=== PATIENT | female | born 2000 | race Caucasian/White ===

== ENCOUNTER 2022-09-06 08:29 | Observation (INO) ==
--- NOTE | 2022-09-06 09:17 | Emergency Department Note ---
History of Present Illness General Chief complaint: Throat Pain Stated complaint: TONSILS TOUCHING, NOT EATEN/DRANK LAST 12 HOURS Time Seen by Provider: 09/06/22 09:09 History of Present Illness Maximum Pain Intensity: 10 This is a 22-year-old female that presents to the emergency department via private vehicle with complaints of "tonsils touching, not eating/drinking, mono". Patient notes that she has been experiencing symptoms of mono for the past 2 weeks. She notes that she was diagnosed with mono she believes on the of last month. She states that much of the initial symptoms such as feeling unwell and fever have resolved but the sore throat is worsening. She now notes trouble swallowing. She states that she was started on steroids recently but notes no relief. Home Medications Medication Instructions Recorded Confirmed Type escitalopram oxalate 10 mg tablet 10 mg PO HS 01/13/22 09/06/22 History (Lexapro) propranolol 10 mg tablet 5 - 10 mg PO DAILY PRN Anxiety 01/13/22 09/06/22 Hi story dextroamphetamine-amphetamine 5 mg See Rx Instructions .Route 06/30/22 09/06/22 History tablet .COMPLEX PRN other famotidine 10 mg tablet 10 mg PO HS 08/08/22 09/06/22 History cetirizine 10 mg tablet (Zyrtec) 20 mg PO HS 08/09/22 09/06/22 History omeprazole 20 mg tablet,delayed 20 mg PO BID 08/09/22 09/06/22 History release ondansetron 4 mg disintegrating 4 mg PO Q6H PRN nausea and 09/02/22 09/06/22 Rx tablet vomiting #12 tabs methylprednisolone 4 mg tablets in 4 mg PO DIRECTED 09/06/22 09/06/22 History a dose pack Allergies Allergy/AdvReac Type Severity Reaction Status Date / Time house dust mite Allergy Intermediate Hives Verified 08/16/22 06:25 Past Med/Surg History Medical History Anxiety and depression GERD (gastroesophageal reflux disease) IBS (irritable bowel syndrome) IUD (intrauterine device) in place [place] [facility] History H/O esophagogastroduodenoscopy History of surgery (08/16/22) Left Groin Skin Lesion Excision(Left) - Kennita L. Jones-Andre, DO [place] teeth extracted Family History Grandmother (Maternal) Breast cancer Uncle Cancer Other Diabetes No family history of adverse response to anesthesia Denies family history of Ovarian cancer Prostate cancer Myocardial infarction Colorectal cancer Social History Smoking Status: Current every day smoker Tobacco Type: E-cigarettes / Vaping Cigarettes Per Day: vaping every day (advised npo); Second Hand Exposure: No; Do You Dip or Chew Tobacco: No; Tobacco Cessation Education Requested by Patient: No Hx Alcohol Use: Yes Alcohol type: hard liquor Alcohol Intake Frequency: 2-4 x/Month Hx Substance Use: No Preferred Language: Slovak Communication Ability: Effective 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 Beliefs That Will Affect Care: None marital status: Single Current Living Situation: Other Current Living Situation Comment: roomate current occupational status: employed and student How many Children do You have: 0 Other Information That Helps Us Care for You: No Feels Safe at Home: Yes Safety Concerns: Feels Safe At This Time during the past year weight has: remained stable Assistive Devices: None Review of Systems A total of 10 systems reviewed and were otherwise negative Physical Exam Vital Signs Vital Signs - 24 hr 09/06/22 08:41 09/06/22 12:00 Temperature 36.9 C Temperature Source Temporal Artery Scan Pulse Rate 95 H Pulse Rate [Apical] 81 Pulse Rhythm [Apical] Regular Pulse Strength [Apical] Normal Respiratory Rate 20 20 Respiratory Effort / Characteristics Non-Labored Respiratory Depth Normal Respiratory Pattern Regular Blood Pressure 116/81 Blood Pressure [Right Arm] 122/76 Blood Pressure Mean 92 Blood Pressure Mean [Right Arm] 91 Blood Pressure Position [Right Arm] Lying Pulse Oximetry 96 97 Oxygen Delivery Method Room Air Room Air Sepsis Recent Fever Within 48 Hours No Sepsis New/Unexplained Change in Mental Status No Sepsis Action Taken by Nursing No Action Required VITAL SIGNS - Vital signs and nursing notes were reviewed. Stable and afebrile. GENERAL -22-year-old female appearing her stated age who is in no acute distress. Communicates well with provider and answers questions appropriately. SKIN - Without rashes. No meningeal or petechial rash. HEAD - NC/AT. EYES - PERRL with EOMI bilaterally. Sclera anicteric. EARS - No deformities of external structures noted on gross examination bilaterally.External auditory canals without discharge or otorrhea. NOSE - Midline and without cyanosis. MOUTH/OROPHARYNX - Without perioral cyanosis. Buccal mucosa pink and moist and without leukoplakia. Tongue midline with equal elevation of palate bilaterally. 34+ bilateral tonsillar hypertrophy. Uvula midline. White exudates noted bilaterally. No drooling, stridor, trismus, wheezing or tripoding. Mild alteration in phonation noted. NECK - Neck with FROM. Supple to palpation. Bilateral anterior and posterior cervical lymphadenopathy noted. No nuchal rigidity. LUNGS - Chest wall symmetric without accessory muscle use, intercostals retractions, or central cyanosis. Normal vesicular breath sounds CTA B/L. No wheezes, rales, or rhonchi appreciated. CARDIAC - RRR with S1/S2. No murmur, rubs, or gallops appreciated. EXTREMITIES - No clubbing or peripheral cyanosis. +5/5 strength noted in UE/LE bilaterally. NEUROLOGIC - Cranial nerves II through XII grossly intact. PSYCH - A&Ox3 and cooperates fully with examiner. Pt is very pleasant and interacts well with examiner. Course Administered Medications Ceftriaxone Sodium 2,000 mg/ (Dextrose) 70 mls @ 100 mls/hr IV Q24H REPLACED BY [facility]; Protocol Stop: 09/13/22 14:59 Last Infusion: 09/06/22 16:43 Dose: 0 mls/hr Documented By: Admin: 09/06/22 15:53 Dose: 100 mls/hr Documented By: MIRTHA Morphine Sulfate (Morphine Sulfate 2 Mg/Ml Carp) 2 mg IV Q4H PRN PRN Reason: Pain Stop: 09/20/22 15:02 Last Admin: 09/06/22 15:10 Dose: 2 mg Documented By: MIRTHA Discontinued Medications Dexamethasone Sodium Phosphate (DexamethasonePf 10 Mg/Ml Vial) 10 mg IV NOW ONE Stop: 09/06/22 11:39 Last Admin: 09/06/22 12:00 Dose: 10 mg Documented By: THEODORE Sodium Chloride (Nss 1000ml) 1,000 mls @ 999 mls/hr IV .Q1H1M DEVYN Stop: 09/06/22 10:30 Last Infusion: 09/06/22 10:39 Dose: 0 mls/hr Documented By: Admin: 09/06/22 09:44 Dose: 999 mls/hr Documented By: THEODORE Ioversol (Optiray 320 100ml) 92 ml IV ONCE ONE Stop: 09/06/22 11:02 Last Admin: 09/06/22 11:02 Dose: 92 ml Documented By: ISSA Ketorolac Tromethamine (Ketorolac Tromethamine 15 Mg/Ml Vial) 10 mg IV NOW ONE Stop: 09/06/22 09:29 Last Admin: 09/06/22 09:43 Dose: 10 mg Documented By: THEODORE Sucralfate (Sucralfate 1 Gm/10 Ml Udc) 1 gm PO NOW STA Stop: 09/06/22 11:39 Last Admin: 09/06/22 12:00 Dose: 1 gm Documented By: THEODORE Medical Decision Making Laboratory Data 09/06/22 09:26 09/06/22 09:26 Lab Results 09/06/22 09/06/22 09/06/22 Range/Units 09:26 09:26 09:26 WBC 15.73 H (4.8-10.8) K/ul RBC 4.41 (4.20-5.40) M/uL Hgb 12.9 (12.0-16.0) g/dl Hct 37.8 (37.0-47.0) % MCV 85.7 (80.0-100.0) fL MCH 29.3 (25.0-34.0) pg MCHC 34.1 (32.0-36.0) g/dL RDW Std Deviation 44.2 (36.4-46.3) fL RDW Coeff of Sangita 14.0 (11.5-14.5) % Plt Count 317 (130-400) K/uL MPV 9.6 (9.4-12.4) fL Neutrophils % (Manual) 48 % Lymphocytes % (Manual) 13 % Reactive Lymphs % (Man) 31 % Monocytes % (Manual) 4 % Basophils % (Manual) 2 % Metamyelocytes % (Man) 2 % Neutrophils # (Manual) 7.55 H (1.40-6.50) K/uL Total Absolute Neuts 7.55 H (1.4-6.5) K/uL Lymphocytes # (Manual) 2.04 (1.2-3.4) K/uL Reactive Lymphs # 4.88 K/uL Total Abs Lymphocytes 6.92 H (1.2-3.4) K/uL Monocytes # (Manual) 0.63 H (0.11-0.59) K/uL Basophils # (Manual) 0.31 H (0-0.2) K/uL Metamyelocytes # (Man) 0.31 H (0-0) K/uL Sodium 140 (136-145) mmol/L Potassium 4.3 (3.5-5.1) mmol/L Chloride 105 (98-107) mmol/L Carbon Dioxide 27 (21-32) mmol/L Anion Gap 8 (3-11) BUN 13 (6-23) mg/dl Creatinine 0.76 (0.6-1.2) mg/dl Est Cr Clr Drug Dosing 103.1 ml/min Est GFR ( Amer) 129.1 ml/min Est GFR (Non-Af Amer) 111.3 ml/min BUN/Creatinine Ratio 17.1 (10-20) Glucose 102 H (70-99(Fasting)) mg/dl Calcium 9.2 (8.6-10.3) mg/dl Total Bilirubin 0.5 (0.2-1.0) mg/dl AST 235 H (13-39) U/L ALT 575 H (7-52) U/L Alkaline Phosphatase 510 H (34-104) U/L Total Protein 7.1 (6.0-8.3) gm/dl Albumin 3.8 (3.4-5.0) gm/dl Globulin 3.3 (2.5-4.0) gm/dl Albumin/Globulin Ratio 1.2 (0.9-2) HCG, Qual Negative (Negative) SARS-CoV-2, RNA, NAAT (NEGATIVE) 09/06/22 Range/Units 12:56 WBC (4.8-10.8) K/ul RBC (4.20-5.40) M/uL Hgb (12.0-16.0) g/dl Hct (37.0-47.0) % MCV (80.0-100.0) fL MCH (25.0-34.0) pg MCHC (32.0-36.0) g/dL RDW Std Deviation (36.4-46.3) fL RDW Coeff of Sangita (11.5-14.5) % Plt Count (130-400) K/uL MPV (9.4-12.4) fL Neutrophils % (Manual) % Lymphocytes % (Manual) % Reactive Lymphs % (Man) % Monocytes % (Manual) % Basophils % (Manual) % Metamyelocytes % (Man) % Neutrophils # (Manual) (1.40-6.50) K/uL Total Absolute Neuts (1.4-6.5) K/uL Lymphocytes # (Manual) (1.2-3.4) K/uL Reactive Lymphs # K/uL Total Abs Lymphocytes (1.2-3.4) K/uL Monocytes # (Manual) (0.11-0.59) K/uL Basophils # (Manual) (0-0.2) K/uL Metamyelocytes # (Man) (0-0) K/uL Sodium (136-145) mmol/L Potassium (3.5-5.1) mmol/L Chloride (98-107) mmol/L Carbon Dioxide (21-32) mmol/L Anion Gap (3-11) BUN (6-23) mg/dl Creatinine (0.6-1.2) mg/dl Est Cr Clr Drug Dosing ml/min Est GFR ( Amer) ml/min Est GFR (Non-Af Amer) ml/min BUN/Creatinine Ratio (10-20) Glucose (70-99(Fasting)) mg/dl Calcium (8.6-10.3) mg/dl Total Bilirubin (0.2-1.0) mg/dl AST (13-39) U/L ALT (7-52) U/L Alkaline Phosphatase (34-104) U/L Total Protein (6.0-8.3) gm/dl Albumin (3.4-5.0) gm/dl Globulin (2.5-4.0) gm/dl Albumin/Globulin Ratio (0.9-2) HCG, Qual (Negative) SARS-CoV-2, RNA, NAAT NEGATIVE (NEGATIVE) Imaging Data Radiologist's Impression: Soft Tissue Neck CT 09/06/22 09:17 CT SCAN OF THE NECK WITH IV CONTRAST CLINICAL HISTORY: Mononucleosis. Sore throat. Dysphagia. COMPARISON STUDY: No priors. TECHNIQUE: Following the IV administration of 92 cc of Optiray 320, CT scan of the soft tissues of the neck was performed from the skull base to the upper chest. Images are reviewed in the axial, sagittal, and coronal planes. IV contrast was administered without complication. A dose lowering technique was utilized adhering to the principles of ALARA. FINDINGS: Pharynx: There is marked thickening and mucosal hyperemia of the pharyngeal mucosa. The tonsils appear edematous. No peritonsillar abscess is seen. This narrows the adjacent airway. There is no evidence of mass lesion. The vocal cords are symmetric. The parapharyngeal fat is well maintained. The prevertebral/retropharyngeal soft tissues are within normal limits. Lymphadenopathy: There is cervical and submandibular lymphadenopathy. A submandibular node seen on image #258 measures 1.6 x 1.2 cm. A right cervical chain node on image #220 measures 2.6 x 1.7 cm and a left cervical chain node on image #213 measures 2.3 x 2.0 cm. Mildly enlarged nodes in the superior mediastinum measure up to 0.9 cm in short axis. Mildly enlarged intraparotid nodes measure up to 1.0 cm in length. Thyroid: Normal in size and attenuation. Salivary glands: The parotid and submandibular glands are within normal limits. Brain parenchyma: The visualized brain parenchyma at the skull base is normal in appearance. Vascular structures: The carotid arteries and jugular veins are patent. Skeletal structures: Imaged portions of the calvarium at the skull base are within normal limits. The cervical spine appears intact. Orbits: The bony orbits are intact. Orbital contents are normal as imaged. Sinuses and mastoids: There is mild mucosal thickening the maxillary antra. Smaller fluid levels are seen bilaterally. Uhni-bu-borgscxb mucosal thickening is noted in the ethmoid sinuses. There is also mild mucosal thickening within the sphenoid and frontal sinuses. There are bilateral mastoid effusions. There is also fluid within the middle ear bilaterally. Lung apices: Visualized apical lung parenchyma is clear. IMPRESSION: 1. There is evidence of a severe pharyngitis/tonsillitis with bulky lymphadenopathy throughout the neck. This is consistent with the reported history of mononucleosis. Clinical follow-up to resolution is recommended. 3. There is no evidence of peritonsillar abscess. 3. Edema mildly narrows the airway. 4. Pansinus disease as above. 5. There are bilateral mastoid effusions with associated fluid in the middle ear. Correlate clinically for evidence of bilateral otomastoiditis. ACT 112: Negative or not required by law. Electronically signed by: Rufino Mcelroy M.D. 09/06/2022 11:25 AM MDM Narrative Patient was seen and evaluated as above in room A10. Review was performed of triage nursing notes and vital signs. I did review pertinent previous visits and patient history. After obtaining a thorough history and physical examination the above work up was performed. Patient presents to us today for evaluation of worsening sore throat and now trouble swallowing in the setting of recent mononucleosis diagnosis. On examination there is no drooling, stridor, trismus, wheezing or tripoding. There is mild alteration in phonation noted. Options of care were discussed with the patient. IV access was established. Labs were drawn. There is leukocytosis 15.73 which is new compared to previous which may be secondary to stress response, recent steroid use that was prescribed to her versus bacterial infection. There is no anemia. No evidence of kidney failure. Transaminitis noted. hCG negative. AST and ALT are a bit improved compared to previous. Alk phos is a bit higher. CT scan of the neck was obtained noting the symptoms and worsening symptoms over timeframe of illness. Results of the CT as above. Evidence of a severe pharyngitis/tonsillitis with bulky lymphadenopathy throughout the neck. There is no evidence of CORPORATE ACCOUNT EXECUTIVE. Edema mildly narrows the airway by CT and clinically there is no stridor or evidence of impending airway compromise. There is comment of bilateral mastoid effusions with associated fluid in the middle ear. With the patient's findings I do believe that further evaluation and management in the inpatient setting is reasonable and discussed options with the patient. At this time through shared decision making we will proceed. Patient will here in the ED did receive IV fluids, IV Carafate for the upper GI tract/pharynx as well as IV Toradol and IV steroids. It is felt that the benefit of the medication outweighs risk. Case discussed with the hospitalist. Antibiotics to be added by medicine team. Please refer to further documentation regarding her stay. GCS: 15 In the evaluation and treatment of this patient the following differential diagnoses were entertained: Strep pharyngitis, viral pharyngitis, allergic rhinitis with post nasal drip, airway obstruction, head/neck neoplasias, GERD, peritonisllar abscess, epiglottitis, mqzv-ejqo-gty-mouth disease, herpes simplex, mononucleosis, pneumonia, retropharyngeal abscess, scarlet fever, among others. Impression & Plan Infectious mononucleosis, Transaminitis, Pharyngitis, Tonsillitis Discharge Plan Visit Data Chief Complaint: Throat Pain Stated Complaint: TONSILS TOUCHING, NOT EATEN/DRANK LAST 12 HOURS ED Provider: Percy Walter ED Midlevel Provider: Silvino Keller Discharge Problem: Infectious mononucleosis, Transaminitis, Pharyngitis, Tonsillitis Patient Disposition: Admitted As Inpatient Condition: Good Discharge Instructions Interventions: ED Discharge Assessment Last Done: 09/06/22 14:30
[2022-09-06] MEDS ORDERED: KETOROLAC TROMETHAMINE 15 MG/ML VIAL IV ONE (09:28)
[2022-09-06] MEDS ORDERED: SODIUM CHLORIDE 0.9% 1000ML 1,000 ML IV SCH (09:30)
[2022-09-06 09:56] LABS: Hematocrit (blood only) 37.8 % (37.0-47.0); Hemoglobin 12.9 g/dl (12.0-16.0); Mean Corpuscular Hemoglobin 29.3 pg (25.0-34.0); Mean Corpuscular Hgb Conc 34.1 g/dL (32.0-36.0); Mean Corpuscular Volume 85.7 fL (80.0-100.0); Mean Platelet Volume 9.6 fL (9.4-12.4); Platelet Count 317 K/uL (130-400); RDW Standard Deviation 44.2 fL (36.4-46.3); Red Blood Count 4.41 M/uL (4.20-5.40); White Blood Count 15.73 K/ul (4.8-10.8)
[2022-09-06 10:13] LABS: BUN Creatinine Ratio 17.1 (10-20); Calcium 9.2 mg/dl (8.6-10.3); Creatinine Clr Calc Pharmacy 103.1 ml/min; Est GFR (African American) 129.1 ml/min; Est GFR (Non-African American) 111.3 ml/min; Potassium 4.3 mmol/L (3.5-5.1)
[2022-09-06 10:16] LABS: Albumin Globulin Ratio 1.2 (0.9-2); Albumin Level 3.8 gm/dl (3.4-5.0); Bilirubin,Total 0.5 mg/dl (0.2-1.0); Globulin 3.3 gm/dl (2.5-4.0); Total Protein 7.1 gm/dl (6.0-8.3)
[2022-09-06 10:26] LABS: ALC (manual) 6.92 K/uL (1.2-3.4); ANC (manual) 7.55 K/uL (1.4-6.5); Basophils # (manual) 0.31 K/uL (0-0.2); Basophils % (manual) 2 %; Lymphocytes # (manual) 2.04 K/uL (1.2-3.4); Lymphocytes % (manual) 13 %; Metamyelocytes # (manual) 0.31 K/uL (0-0); Metamyelocytes % (manual) 2 %; Monocytes # (manual) 0.63 K/uL (0.11-0.59); Monocytes % (manual) 4 %; Neutrophils # (manual) 7.55 K/uL (1.40-6.50); Neutrophils % (manual) 48 %; Reactive Lymphocytes # (manual) 4.88 K/uL; Reactive Lymphocytes % (manual) 31 %
[2022-09-06 10:32] LABS: Pregnancy Test, Serum Negative (Negative)
[2022-09-06] MEDS ORDERED: OPTIRAY 320 100ml IV ONE (11:01)
--- NOTE | 2022-09-06 11:26 | CT Scan Report ---
CT SCAN OF THE NECK WITH IV CONTRAST CLINICAL HISTORY: Mononucleosis. Sore throat. Dysphagia. COMPARISON STUDY: No priors. TECHNIQUE: Following the IV administration of 92 cc of Optiray 320, CT scan of the soft tissues of th e neck was performed from the skull base to the upper chest. Images are reviewed in the axial, sagitt al, and coronal planes. IV contrast was administered without complication. A dose lowering techniqu e was utilized adhering to the principles of ALARA. FINDINGS: Pharynx: There is marked thickening and mucosal hyperemia of the pharyngeal mucosa. The tonsils appe ar edematous. No peritonsillar abscess is seen. This narrows the adjacent airway. There is no evidenc e of mass lesion. The vocal cords are symmetric. The parapharyngeal fat is well maintained. The preve rtebral/retropharyngeal soft tissues are within normal limits. Lymphadenopathy: There is cervical and submandibular lymphadenopathy. A submandibular node seen on im age #258 measures 1.6 x 1.2 cm. A right cervical chain node on image #220 measures 2.6 x 1.7 cm and a left cervical chain node on image #213 measures 2.3 x 2.0 cm. Mildly enlarged nodes in the superior mediastinum measure up to 0.9 cm in short axis. Mildly enlarged intraparotid nodes measure up to 1.0 cm in length. Thyroid: Normal in size and attenuation. Salivary glands: The parotid and submandibular glands are within normal limits. Brain parenchyma: The visualized brain parenchyma at the skull base is normal in appearance. Vascular structures: The carotid arteries and jugular veins are patent. Skeletal structures: Imaged portions of the calvarium at the skull base are within normal limits. The cervical spine appears intact. Orbits: The bony orbits are intact. Orbital contents are normal as imaged. Sinuses and mastoids: There is mild mucosal thickening the maxillary antra. Smaller fluid levels are seen bilaterally. Oxlc-om-hfhxhvcy mucosal thickening is noted in the ethmoid sinuses. There is also mild mucosal thickening within the sphenoid and frontal sinuses. There are bilateral mastoid effusion s. There is also fluid within the middle ear bilaterally. Lung apices: Visualized apical lung parenchyma is clear. IMPRESSION: 1. There is evidence of a severe pharyngitis/tonsillitis with bulky lymphadenopathy throughout the ne ck. This is consistent with the reported history of mononucleosis. Clinical follow-up to resolution i s recommended. 3. There is no evidence of peritonsillar abscess. 3. Edema mildly narrows the airway. 4. Pansinus disease as above. 5. There are bilateral mastoid effusions with associated fluid in the middle ear. Correlate clinicall y for evidence of bilateral otomastoiditis. ACT 112: Negative or not required by law. Electronically signed by: Rufino Mcelroy M.D. 09/06/2022 11:25 AM
[2022-09-06] MEDS ORDERED: SUCRALFATE 1 GM/10 ML UDC PO STA (11:38)
[2022-09-06] MEDS ORDERED: dexAMETHasone**PF** 10 MG/ML VIAL IV ONE (11:38)
--- NOTE | 2022-09-06 12:59 | History & Physical Report ---
Date of Service September 06, 2022 Assessment & Plan (1) Pharyngitis: Plan: Pharyngitis -Patient has a history of infectious mononucleosis diagnosed 3 weeks ago. This was improving until today, patient has had sudden interval worsening of her pharyngitis, difficulty swallowing and has bilateral tonsillar edema/erythema with exudative effusion Given secondary sickening and neutrophilic expansion which is new from her prior lymphocytosis suspect that this is likely secondary infection rather than continued symptoms for mono Reportedly had a outpatient strep rapid which was negative, given clinical symptoms will repeat throat culture for further evaluation and better sensitivity We will treat empirically with Rocephin and cefdinir as p.o. conversion option. Do not use penicillin based antibiotic in the setting of recent mono due to risk of precipitating drug rash. Cefdinir unlikely to precipitate viral drug rash and would also give reasonable coverage for otitis which is noted on her CT; although suspect that in absence of TM injection/erythema/ear pain that this is more likely due to eustachian tube obstruction and uninfected middle ear fluid. Follow throat culture results CT with trace airway edema, uvula is midline and she has no wheezing/stridor and no clinical evidence of airway compromise at bedside. Will follow clinically, has been giving dexamethasone while in the ER which is continued. (2) Infectious mononucleosis: Plan: 3 weeks of symptoms Is with transaminitis which continues to downtrend Has been taking Tylenol up to max of 2 tablets of 650 mg acetaminophen daily. Patient is aware of dose reduction due to her transaminitis, last took 1 dose of Tylenol this morning May continue 60 Tylenol twice daily as needed for pain/fever and will continue a 1300 mg total daily dose at this time CMP daily Elevated left-sided count consistent with her prior viral illness; neutrophilic expansion is new as discussed above (3) GERD (gastroesophageal reflux disease): Plan: Convert omeprazole to Protonix while inpatient (4) IBS (irritable bowel syndrome): Plan DVT prophylaxis: Low risk, SCDs Diet: Clears CODE STATUS: Full code History of Present Illness Primary Care Provider: NO PCP Celina Jackson is a 22-year-old female was diagnosed at the beginning of September with infectious mononucleosis with continued fever/chills on 09/01/2022 who read presents for ER evaluation 09/06 with continued sore throat and difficulty eating/drinking. On ER presentation did not have wheezing/stridor, CT soft tissue of the neck does show severe pharyngitis/tonsillitis with bulky lymphadenopathy and mild narrowing of the airway due to edema. Bilateral mastoid effusions with middle ear fluid Celina seen at the bedside. She reports that around 3 weeks ago she was diagnosed with mono and had fever, chills, body aches, and sore throat. She feels that this was actually overall getting better and her stomach discomfort diarrhea and fevers had resolved. She was improving up until this morning when she had significant worsening of her sore throat, and feeling like she had much more difficulty eating and swallowing. She has not had any shortness of breath, difficulty breathing, wheezing, or stridor. She notes that her ears have a pressure-like feeling in them but no sharp pain and she does not have an earache, just a feeling of pressure. She notes that she has had issues with her tonsils in the past as a kid. She has no medication allergies. She has been taking Tylenol, but only takes 1 or 2 tablets a day (60 tablets, total dose 1300) as she was told not to exceed this due to her concurrent transaminitis. Took 1 Tylenol tablet this morning Allergies Allergy/AdvReac Type Severity Reaction Status Date / Time house dust mite Allergy Intermediate Hives Verified 08/16/22 06:25 Home Medications Medication Instructions Recorded Confirmed Type escitalopram oxalate 10 mg tablet 10 mg PO HS 01/13/22 09/06/22 History (Lexapro) propranolol 10 mg tablet 5 - 10 mg PO DAILY PRN Anxiety 01/13/22 09/06/22 History dextroamphetamine-amphetamine 5 mg See Rx Instructions .Route 06/30/22 09/06/22 History tablet .COMPLEX PRN other famotidine 10 mg tablet 10 mg PO HS 08/08/22 09/06/22 History cetirizine 10 mg tablet (Zyrtec) 20 mg PO HS 08/09/22 09/06/22 History omeprazole 20 mg tablet,delayed 20 mg PO BID 08/09/22 09/06/22 History release ondansetron 4 mg disintegrating 4 mg PO Q6H PRN nausea and 09/02/22 09/06/22 Rx tablet vomiting #12 tabs methylprednisolone 4 mg tablets in 4 mg PO DIRECTED 09/06/22 09/06/22 History a dose pack Past Med/Surg History Medical History Anxiety and depression GERD (gastroesophageal reflux disease) IBS (irritable bowel syndrome) IUD (intrauterine device) in place [facility] History H/O esophagogastroduodenoscopy History of surgery (08/16/22) Left Groin Skin Lesion Excision(Left) - Tevin Slater DO [place] teeth extracted Family History Grandmother (Maternal) Breast cancer Uncle Cancer Other Diabetes No family history of adverse response to anesthesia Denies family history of Ovarian cancer Prostate cancer Myocardial infarction Colorectal cancer Social History Smoking Status: Current every day smoker Tobacco Type: E-cigarettes / Vaping Cigarettes Per Day: vaping every day (advised npo); Second Hand Exposure: No; Hx Alcohol Use: Yes Alcohol type: hard liquor Alcohol Intake Frequency: 2-4 x/Month Hx Substance Use: No Preferred Language: Latvian 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 NAD. Cooperative. HEENT: Atraumatic, normocephalic. Posterior pharynx with bilateral tonsillar edema, erythema, and exudative effusion. Uvula midline. Patient shotty bilateral posterior cervical adenopathy. TMs with clear fluid bilaterally, although no injection/erythema/purulence. Pulm: CTAB A&P. -wheezes, -rales, -rhonchi. Symmetrical chest rise. No increased work of breathing. No respiratory distress. Cardiac: RRR, -mrg. Radial pulses intact and symmetrical. Abdominal: Nontender, nondistended, soft. BS present. Results & Data Results & Data Vital Signs (Past 12 Hours) Vital Signs Temp Pulse Pulse Resp BP BP Pulse Ox 09/06/22 12:00 81 20 122/76 97 09/06/22 08:41 36.9 C 95 H 20 116/81 96 O2 Del Method 09/06/22 12:00 Room Air 09/06/22 08:41 Room Air PG Care Time/CCT Total # of Minutes Spent Total Time Spent with Patient: Total time spent is greater than 50% in coordination of care (as documented) at patient's floor/unit and/or counseling patient: Coding Level of Care Code 49286 INT INP/OBS CARE 255MIN Diagnoses Pharyngitis J02.9 Infectious mononucleosis B27.90 GERD (gastroesophageal reflux disease) K21.9 IBS (irritable bowel syndrome) K58.9
[2022-09-06] MEDS ORDERED: ACETAMINOPHEN 325 MG TAB PO PRN (14:08)
[2022-09-06] MEDS ORDERED: POLYETHYLENE (MIRALAX) 17 GM PACK PO PRN (14:48)
[2022-09-06] MEDS ORDERED: PROPRANOLOL HCL 10 MG TAB PO PRN (14:48)
[2022-09-06] MEDS ORDERED: cefTRIAXone SODIUM 2,000 MG in DEXTROSE 5% 50 ML IV SCH (15:00)
[2022-09-06] MEDS: MoRPHine SULFATE 2 MG/ML CARP IV PRN ×2 (15:10→19:40)
[2022-09-06] MEDS: CETIRIZINE HCL 10 MG TABLET PO SCH (19:41)
[2022-09-06] MEDS: FAMOTIDINE 10 MG TABLET PO SCH (19:42)
[2022-09-06] MEDS: ESCITALOPRAM OXALATE 10 MG TAB PO SCH (19:42)
[2022-09-06] MEDS ORDERED: MELATONIN 3 MG TAB PO ONE (22:12)
[2022-09-06] MEDS: MELATONIN 3 MG TAB PO PRN (22:13)
[2022-09-07] MEDS: MoRPHine SULFATE 2 MG/ML CARP IV PRN ×3 (01:47→19:18)
[2022-09-07] MEDS ORDERED: ONDANSETRON INJ 2 MG/ML 2 ML VIAL IV STA (06:34)
[2022-09-07 07:36] LABS: Hematocrit (blood only) 34.4 % (37.0-47.0); Hemoglobin 11.9 g/dl (12.0-16.0); Mean Corpuscular Hemoglobin 29.6 pg (25.0-34.0); Mean Corpuscular Hgb Conc 34.6 g/dL (32.0-36.0); Mean Corpuscular Volume 85.6 fL (80.0-100.0); Mean Platelet Volume 9.6 fL (9.4-12.4); Platelet Count 301 K/uL (130-400); RDW Coefficient of Variation 13.9 % (11.5-14.5); RDW Standard Deviation 43.6 fL (36.4-46.3); Red Blood Count 4.02 M/uL (4.20-5.40); White Blood Count 15.66 K/ul (4.8-10.8)
[2022-09-07 08:10] LABS: ALC (manual) 6.26 K/uL (1.2-3.4); Basophils # (manual) 0.16 K/uL (0-0.2); Basophils % (manual) 1 %; Lymphocytes # (manual) 2.98 K/uL (1.2-3.4); Lymphocytes % (manual) 19 %; Monocytes # (manual) 0.94 K/uL (0.11-0.59); Monocytes % (manual) 6 %; Neutrophils % (manual) 53 %; Reactive Lymphocytes # (manual) 3.29 K/uL; Reactive Lymphocytes % (manual) 21 %
[2022-09-07 08:12] LABS: Albumin Level 3.4 gm/dl (3.4-5.0); BUN Creatinine Ratio 21.3 (10-20); Bilirubin,Total 0.4 mg/dl (0.2-1.0); Calcium 8.4 mg/dl (8.6-10.3); Creatinine Clr Calc Pharmacy 99.5 ml/min; Est GFR (African American) 121.3 ml/min; Est GFR (Non-African American) 104.7 ml/min; Globulin 3.5 gm/dl (2.5-4.0); Total Protein 6.9 gm/dl (6.0-8.3)
[2022-09-07] MEDS: PANTOprazole 40 MG TAB PO SCH (08:57)
[2022-09-07] MEDS: dexAMETHasone 6 MG in SYRINGE 0 ML IV SCH ×2 (08:58→15:30)
[2022-09-07] MEDS ORDERED: dexAMETHasone 6 MG in SYRINGE 0 ML IV SCH (09:00)
[2022-09-07] MEDS ORDERED: DEXAMETHASONE SOD INJ 4 MG/ML VIAL IV SCH (09:00)
[2022-09-07] MEDS: KETOROLAC TROMETHAMINE 15 MG/ML VIAL IV PRN ×3 (09:02→22:05)
[2022-09-07] MEDS: LACTATED RINGER'S 1,000 ML IV SCH ×2 (09:03→17:48)
[2022-09-07] MEDS: AMPICILLIN/SULBACTAM SOD 3,000 MG in 0.9 % SODIUM CHLORIDE 100 ML IV SCH ×3 (09:03→21:26)
--- NOTE | 2022-09-07 13:57 | Hospitalist Progress Note ---
Date of Service September 07, 2022 Assessment & Plan (1) Pharyngitis: Plan: Pharyngitis -Patient has a history of infectious mononucleosis diagnosed 3 weeks ago. This was improving until recently worsened, patient has had sudden interval worsening of her pharyngitis, difficulty swallowing and has bilateral tonsillar edema/erythema with exudative effusion -was placed on methylprednisolone as outpt but only took 2 pills prior to arrival which may explain her leukocytosis Reportedly had a outpatient strep rapid which was negative, given clinical symptoms will repeat throat culture for further evaluation and better sensitivity-moderate normal adriana prelim CT with trace airway edema, uvula is midline and she has no wheezing/stridor and no clinical evidence of airway compromise at bedside Improving today with improving pain with swallowing. No airway compromise on exam, no fevers. WBC count still high at 15 from steroids -increased decadron to 8mg IV q8h -added toradol prn -change ceftriaxone to Unasyn for anaerobic coverage, would not worry about potential rash from amox use in setting of mono -start IVFs with LR at 125mL/hr until improved po intake -adv diet to full liquids -follow throat culture -will arrange for outpt ENT appt for assessment of tonsillar hypertrophy with associated infections, snoring (2) Infectious mononucleosis: Plan: 2- 3 weeks of symptoms; this is her second mono infection this year Is with transaminitis which continues to downtrend today; with moderate splenomegaly seen on Abd US on 09/01--> advised no contact sports and caution with her large dog jumping on abdomen -follow CBC, CMP -supportive care as above (3) GERD (gastroesophageal reflux disease): Plan: continue PPI (4) IBS (irritable bowel syndrome): Plan: no acute issues continue Lexapro Plan DVT prophylaxis: Low risk, SCDs Dispo-continued stay, slowly improving, plan to likely dc to home tomorrow Admission and Anticipated Discharge Date Admission Date: September 06, 2022 Anticipated date of discharge: 09/08/22 Subjective Had a really rough night with sore throat, trouble swallowing. I ordered toradol and increased dose of decadron and now feeling much better. Able to swallow better and was able to tolerate more clears for lunch. No cough. Has +ear pressure. No other concerns, feels appetite improving. Mom at bedside asks about seeing ENT as pt has had enlarged tonsils and adenoids for years and has had issues with snoring as wlel as infections. She already had mono earlier this year in [place] Physical Exam Constitutional: WD/WN, vitals as above ENMT: Mouth: + oropharynx abnormality (large tonsils with exudate,uvula midline,airway patent); no tongue abnormality, no trismus and TMJ nontender Neck: neck nontender and no nuchal rigidity Respiratory: normal respiratory effort, lungs clear to auscultation Cardiovascular: RRR, no murmur, no edema Gastrointestinal (Abdomen): normal bowel sounds, soft, nontender, no hepatosplenomegaly Psychiatric: A+Ox3, euthymic affect Lymphatic: + cervical lymphadenopathy Results & Data Results & Data Vital Signs (Past 12 Hours) Vital Signs Temp Pulse Resp BP Pulse Ox O2 Del Method 09/07/22 07:39 Room Air 09/07/22 07:03 36.5 C 99 H 18 111/71 97 Room Air Laboratory Results CBC, CMP reviewed Throat cx with moderate normal adriana preliminary PG Care Time/CCT Total # of Minutes Spent Total Time Spent with Patient: Total time spent is greater than 50% in coordination of care (as documented) at patient's floor/unit and/or counseling patient: Coding Level of Care Code 07372 SUB INP/OBS CARE 3/50MIN Diagnoses Pharyngitis J02.9 Infectious mononucleosis B27.90 GERD (gastroesophageal reflux disease) K21.9 IBS (irritable bowel syndrome) K58.9
[2022-09-07] MEDS: FAMOTIDINE 10 MG TABLET PO SCH (19:27)
[2022-09-07] MEDS: CETIRIZINE HCL 10 MG TABLET PO SCH (19:27)
[2022-09-07] MEDS: ESCITALOPRAM OXALATE 10 MG TAB PO SCH (19:28)
[2022-09-07] MEDS: MELATONIN 3 MG TAB PO PRN (22:05)
[2022-09-08] MEDS: dexAMETHasone 6 MG in SYRINGE 0 ML IV SCH ×3 (00:12→15:21)
[2022-09-08] MEDS: LACTATED RINGER'S 1,000 ML IV SCH ×2 (01:38→11:23)
[2022-09-08] MEDS: AMPICILLIN/SULBACTAM SOD 3,000 MG in 0.9 % SODIUM CHLORIDE 100 ML IV SCH ×3 (02:56→13:24)
[2022-09-08] MEDS: MoRPHine SULFATE 2 MG/ML CARP IV PRN ×3 (02:59→13:23)
[2022-09-08] MEDS: KETOROLAC TROMETHAMINE 15 MG/ML VIAL IV PRN ×2 (04:02→11:27)
[2022-09-08 07:16] LABS: Hematocrit (blood only) 34.5 % (37.0-47.0); Hemoglobin 11.8 g/dl (12.0-16.0); Mean Corpuscular Hemoglobin 29.6 pg (25.0-34.0); Mean Corpuscular Hgb Conc 34.2 g/dL (32.0-36.0); Mean Corpuscular Volume 86.5 fL (80.0-100.0); Platelet Count 305 K/uL (130-400); RDW Coefficient of Variation 13.8 % (11.5-14.5); Red Blood Count 3.99 M/uL (4.20-5.40); White Blood Count 11.97 K/ul (4.8-10.8)
[2022-09-08 07:44] LABS: Alanine Aminotransferase 328 U/L (7-52); Albumin Level 3.4 gm/dl (3.4-5.0); Alkaline Phosphatase 369 U/L (34-104); Anion Gap 5 (3-11); Aspartate Aminotransferase 101 U/L (13-39); Bilirubin,Total 0.5 mg/dl (0.2-1.0); Blood Urea Nitrogen 11 mg/dl (6-23); Calcium 8.6 mg/dl (8.6-10.3); Carbon Dioxide 28 mmol/L (21-32); Chloride 105 mmol/L (98-107); Creatinine Clr Calc Pharmacy 144.7 ml/min; Est GFR (African American) > 150.0 ml/min; Est GFR (Non-African American) 133.1 ml/min; Globulin 3.4 gm/dl (2.5-4.0); Glucose 118 mg/dl (70-99(Fasting)); Magnesium 2.1 mg/dl (1.7-2.4); Potassium 4.3 mmol/L (3.5-5.1); Sodium 138 mmol/L (136-145); Total Protein 6.8 gm/dl (6.0-8.3)
[2022-09-08 08:05] LABS: ALC (manual) 5.51 K/uL (1.2-3.4); ANC (manual) 5.99 K/uL (1.4-6.5); Lymphocytes # (manual) 0.84 K/uL (1.2-3.4); Lymphocytes % (manual) 7 %; Monocytes # (manual) 0.48 K/uL (0.11-0.59); Monocytes % (manual) 4 %; Neutrophils # (manual) 5.99 K/uL (1.40-6.50); Neutrophils % (manual) 50 %; Reactive Lymphocytes # (manual) 4.67 K/uL; Reactive Lymphocytes % (manual) 39 %
[2022-09-08] MEDS: PANTOprazole 40 MG TAB PO SCH (08:31)
[2022-09-08] MEDS ORDERED: ONDANSETRON INJ 2 MG/ML 2 ML VIAL IV PRN (09:06)
[2022-09-08] MEDS ORDERED: oxyCODONE/ACETAMINOPHEN 5mg/325mg TAB PO PRN (15:07)
--- NOTE | 2022-09-08 15:24 | Discharge Summary ---
Discharge Summary Date of Service September 08, 2022 Notes For Next Care Provider Follow LFTs once weekly until normalized Medication Changes From Visit Augmentin 875mg po bid x 8 more days Methylpred dose pack Toradol 10mg po tid prn pain oxycodone-APAP 5mg po q6h prn moderate-severe pain Admission HPI Per Admitting Provider Celina Jackson is a 22-year-old female was diagnosed at the beginning of September with infectious mononucleosis with continued fever/chills on 09/01/2022 who read presents for ER evaluation 09/06 with continued sore throat and difficulty eat ing/drinking. On ER presentation did not have wheezing/stridor, CT soft tissue of the neck does show severe pharyngitis/tonsillitis with bulky lymphadenopathy and mild narrowing of the airway due to edema. Bilateral mastoid effusions with middle ear fluid Celina seen at the bedside. She reports that around 3 weeks ago she was diagnosed with mono and had fever, chills, body aches, and sore throat. She feels that this was actually overall getting better and her stomach discomfort diarrhea and fevers had resolved. She was improving up until this morning when she had significant worsening of her sore throat, and feeling like she had much more difficulty eating and swallowing. She has not had any shortness of breath, difficulty breathing, wheezing, or stridor. She notes that her ears have a pressure-like feeling in them but no sharp pain and she does not have an earache, just a feeling of pressure. She notes that she has had issues with her tonsils in the past as a kid. She has no medication allergies. She has been taking Tylenol, but only takes 1 or 2 tablets a day (60 tablets, total dose 1300) as she was told not to exceed this due to her concurrent transaminitis. Took 1 Tylenol tablet this morning Principal Dx & Hospital Course #1 = Principal Diagnosis (1) Pharyngitis: Pharyngitis -Patient has a history of infectious mononucleosis diagnosed 3 weeks ago. This was improving until recently worsened, patient has had sudden interval worsening of her pharyngitis, difficulty swallowing and has bilateral tonsillar edema/erythema with exudative effusion -was placed on methylprednisolone as outpt but only took 2 pills prior to arrival which may explain her leukocytosis Reportedly had a outpatient strep rapid which was negative, and throat culture from urgent care also now known to be negative; Repeat throat culture here also negative CT with trace airway edema, uvula is midline and she has no wheezing/stridor and no clinical evidence of airway compromise at bedside Treated with IV steroids, IV toradol, IV morphine, IVFs, and IV Unasyn Continues to be improving today with improving pain with swallowing. No airway compromise on exam, no fevers. WBC count normalizing. Able to tolerate soft diet prior to discharge -dc to home with po toradol prn, percocet prn mod-severe pain, finish out methylpred dose pack, and Augmentin bid to finish out a 10 day course -arranged for outpt ENT appt for assessment of tonsillar hypertrophy with associated infections, snoring -f/u with PCP (2) Infectious mononucleosis: 2- 3 weeks of symptoms; this is her second mono infection this year Is with transaminitis which continues to downtrend today; with moderate splenomegaly seen on Abd US on 09/01--> advised no contact sports and caution with her large dog jumping on abdomen-this was discussed with patient and her mother at bedside on two occasions -follow LFTs as outpt until normalized -supportive care as above (3) GERD (gastroesophageal reflux disease): continue PPI (4) IBS (irritable bowel syndrome): no acute issues continue Lexapro Plan DVT prophylaxis: Low risk, SCDs Dispo- dc to home today Discharge Exam Constitutional WD/WN, vitals as above ENMT Mouth: + oropharynx abnormality (large tonsils with exudate,uvula midline,airway patent); no tongue abnormality, no trismus and TMJ nontender Neck neck nontender and no nuchal rigidity Respiratory normal respiratory effort, lungs clear to auscultation Cardiovascular RRR, no murmur, no edema Gastrointestinal (Abdomen) normal bowel sounds, soft, nontender, no hepatosplenomegaly Psychiatric A+Ox3, euthymic affect Lymphatic + cervical lymphadenopathy Updated Medication List Medication Instructions Recorded Confirmed Type escitalopram oxalate 10 mg tablet 10 mg PO HS 01/13/22 09/06/22 History (Lexapro) propranolol 10 mg tablet 5 - 10 mg PO DAILY PRN Anxiety 01/13/22 09/06/22 History dextroamphetamine-amphetamine 5 mg See Rx Instructions .Route 06/30/22 09/06/22 History tablet .COMPLEX PRN other famotidine 10 mg tablet 10 mg PO HS 08/08/22 09/06/22 History cetirizine 10 mg tablet (Zyrtec) 20 mg PO HS 08/09/22 09/06/22 History omeprazole 20 mg tablet,delayed 20 mg PO BID 08/09/22 09/06/22 History release ondansetron 4 mg disintegrating 4 mg PO Q6H PRN nausea and 09/02/22 09/06/22 Rx tablet vomiting #12 tabs methylprednisolone 4 mg tablets in 4 mg PO DIRECTED 09/06/22 09/06/22 History a dose pack acetaminophen 325 mg tablet 650 mg PO BID PRN pain #30 tabs 09/08/22 Rx amoxicillin 875 mg-potassium 1 tab PO BID #16 tabs 09/08/22 Rx clavulanate 125 mg tablet ketorolac 10 mg tablet 10 mg PO Q8H PRN pain #20 tabs 09/08/22 Rx oxycodone-acetaminophen 5 mg-325 1 tab PO Q6H PRN moderate-severe 09/08/22 Rx mg tablet (Percocet) pain #15 tabs Hospital Stay Data Consultations 09/06/22 12:47 ED Decision to Admit Stat Diagnostic Imagining Performed 09/06/22 09:17 CT soft tissue neck w con Stat Pending Results Patient Have Any Pending Studies at Discharge: No Discharge Instructions Given to Patient (Per Discharging Provider) Continue taking the antibiotic called Augmentin twice a day for 8 more days. This can be crushed and should be taken with food. Finish out the steroid dose pack you already have at home as directed. You can take toradol (ketorolac) as needed for mild-moderate pain and take oxycodone for moderate-severe pain. Follow up with the ENT doctor as scheduled for you next week. Please have your new PCP check your liver enzymes with blood work in 1 week and ensure they are returning to normal. You should continue to avoid contact sports and large dogs jumping on your abdomen for 3 more weeks due to your enlarged spleen. Total Time Total Time Spent Total Time Spent (In Minutes): 35 min Coding Level of Care Code 59262 INP/OBS DISCH >30 MIN Diagnoses Pharyngitis J02.9 Infectious mononucleosis B27.90 GERD (gastroesophageal reflux disease) K21.9 IBS (irritable bowel syndrome) K58.9
[2022-09-08] MEDS ORDERED: POLYETHYLENE (MIRALAX) 17 GM PACK PO SCH (15:30)
== END 2022-09-08 18:40 | disposition home or self-care (01) ==
LOC: 3W 08:29 → ED 08:29 → SUATTDRO 14:01 → 3W 14:30